=== PATIENT | female | born 1960 | race Caucasian/White ===

== ENCOUNTER 2016-11-15 18:19 | Emergency (ER) | payer OTHER ==
[~2016-11-15] VITALS: Ht 157.5 cm; Wt 68.0 kg
[2016-11-15 19:27] VITALS: BP 128/73
--- NOTE | 2016-11-15 19:55 | NUR ---
PATIENT PRESENTS TO ED WITH C/O ABD PAIN AND BERMAN . PT DENIES N/V/D; SKIN IS PINK/WARM/DRY; AAOX4 WITH EVEN AND STEADY GAIT; LUNGS CLEAR BL; HR EVEN AND REGULAR; PT DENIES ANY FEVER, CP, SOB, OR COUGH AT THIS TIME; PATIENT STATES PAIN OF 9/10 AT THIS TIME; VSS; PATIENT POSITIONED FOR COMFORT; HOB ELEVATED; BEDRAILS UP X2; BED DOWN. ER MD MADE AWARE OF PT STATUS.
[2016-11-15] MEDS ORDERED: KETOROLAC 60 MG/2 ML VIAL IM ONE (20:10)
[2016-11-15] MEDS ORDERED: ONDANSETRON 4 MG ODT PO ONE (20:10)
--- NOTE | 2016-11-15 20:37 | NUR ---
DR DEVLIN MADE AWARE OF PAIN LEVEL. NEW MED ORDERED.
[2016-11-15] MEDS ORDERED: MORPHINE SULFATE 4 MG/ML SYR IM ONE (20:40)
[2016-11-15 21:30] VITALS: BP 119/62
--- NOTE | 2016-11-15 21:30 | NUR ---
Patient discharged with v/s stable. Written and verbal after care instructions given and explained. Patient alert, oriented and verbalized understanding of instructions. Ambulatory with steady gait. All questions addressed prior to discharge. ID band removed. Patient advised to follow up with PMD. Rx of ZOFRAN AND IMMODIUM given. Patient educated on indication of medication including possible reaction and side effects. Opportunity to ask questions provided and answered.
== END 2016-11-15 21:30 | disposition home or self-care (01) ==
LOC: MED 18:19
CPT/HCPCS: 81002; 96372; 99284; J1885; J2270; S0119

== ENCOUNTER 2017-02-06 18:28 | Emergency (ER) | payer OTHER ==
[~2017-02-06] VITALS: Ht 157.5 cm; Wt 68.0 kg
[2017-02-06 18:53] VITALS: BP 125/77
--- NOTE | 2017-02-06 20:58 | NUR ---
PT TAKEN TO BED 6
--- NOTE | 2017-02-06 21:00 | NUR ---
56 Y/O F W/C/O HEADACHE SINCE 399. PT STATES SHE WENT TO URGENT CARE THIS AM, WAS GIVEN INJECTIONS OF TORADOL AND PHENERGAN, WITH NO EFFECTIVENESS. HX HYPERLIPIDEMIA, KLUTI KAAH. ER MD AT BEDSIDE EVALUATING PT.
--- NOTE | 2017-02-06 21:00 | NUR ---
Dr. Conway evaluating patient at bedside.
[2017-02-06] MEDS ORDERED: NACL 0.9% 1,000 ML IV ONE (21:16)
[2017-02-06] MEDS ORDERED: MORPHINE SULFATE 4 MG/ML SYR IVP ONE (21:20)
[2017-02-06] MEDS ORDERED: diphenhydrAMINE 50 MG/ML VIAL IVP ONE (21:20)
[2017-02-06 21:50] LABS: ANION GAP 16.8 (8-16); CARBON DIOXIDE 23.8 mmol/L (21-32); CREATININE 0.7 mg/dL (0.6-1.3); POTASSIUM 3.6 mmol/L (3.5-5.1)
[2017-02-06 22:14] VITALS: BP 122/71
--- NOTE | 2017-02-06 22:17 | NUR ---
Patient discharged with v/s stable. Written and verbal after care instructions given and explained. Patient alert, oriented and verbalized understanding of instructions. Ambulatory with steady gait. All questions addressed prior to discharge. ID band removed. Patient advised to follow up with PMD. Rx of FIORICET [id number] TAB Q4HRS/PRN given. Patient educated on indication of medication including possible reaction and side effects. Opportunity to ask questions provided and answered.
== END 2017-02-06 22:17 | disposition home or self-care (01) ==
LOC: MED 18:28
DX: G43.909 Migraine, unspecified, not intractable, without status migrainosus (principal); Z88.0 Allergy status to penicillin; Z88.8 Allergy status to other drugs, medicaments and biological substances; Z90.710 Acquired absence of both cervix and uterus
CPT/HCPCS: 36415; 70450; 80048; 96361; 96374; 96375; 99285; J1200; J2270; J7030

== ENCOUNTER 2020-09-13 19:21 | Emergency (ER) | payer OTHER ==
[~2020-09-13] VITALS: Ht 157.5 cm; Wt 70.8 kg
[2020-09-13 19:30] VITALS: BP 140/89
--- NOTE | 2020-09-13 19:30 | NUR ---
TO BED AMBULATORY
--- NOTE | 2020-09-13 19:41 | NUR ---
PATIENT BIB SELF FOR C/O 02/27 PAIN "MIGRAINE HEADACHE" X 1 DAY. A & O X4. PATIENT REPORTS SHE WAS AT [facility] TODAY FOR A COLONOSCOPY AND ENDOSCOPY. PATIENT REPORTS N/V X 4 TIMES. DENIES EMESIS IN VOMIT. PATIENT REPORTS THAT SHE HAS NOT EATEN TO DRANK ANTHING SINCE YESTERDAY. PATIENT STATES "MORPHINE IS THE ONLY THING THAT HELPS MY PAIN." PATIENT DENIES TAKING ANY MEDICATIONS AT HOME FOR PAIN. PUPILS BRISK AND PERRLA. SKIN IS WARM, DRY AND INTACT. PATIENT DENIES CP, SOB, FEVER, CHILLS. SEE COMPLETE ASSESSMENT FOR FURTHER DETAILS. MED HX: HIGH CHOLESTEROL ALLERGIES: PENICILLINS, TOPAMAX, VICODIN
[2020-09-13] MEDS ORDERED: ONDANSETRON 4 MG/2 ML VIAL IVP ONE (20:35)
[2020-09-13] MEDS ORDERED: NACL 0.9% 1,000 ML IV ONE (20:35)
[2020-09-13] MEDS ORDERED: KETOROLAC 30 MG/ML VIAL IVP ONE (20:35)
--- NOTE | 2020-09-13 20:49 | NUR ---
IV STARTED 20 G IN LAC, LABS DRAWN AND HAND GIVEN TO COLLETTE SIMON TECH.
[2020-09-13 20:55] LABS: BASOPHILS # (AUTO) 0.1 K/uL (0.00-0.22); BASOPHILS % (AUTO) 1.2 % (0.0-2.0); EOSINOPHILS % (AUTO) 0.4 % (0.0-4.0); LYMPHOCYTES # (AUTO) 0.8 K/uL (2.5-16.5); MEAN CORPUSCULAR HEMOGLOBIN 28 pg (27-31); MEAN CORPUSCULAR HGB CONC 34 g/dL (33-37); MEAN CORPUSCULAR VOLUME 82.6 fL (80-94); MONOCYTES # (AUTO) 0.3 K/uL (0.8-1.0); MONOCYTES % (AUTO) 3.5 % (1.7-9.3); NEUTROPHILS # (AUTO) 6.1 K/uL (1.8-7.7); NEUTROPHILS % (AUTO) 83.9 % (42.2-75.2); PLATELET COUNT (AUTO) 129 K/uL (140-450); RED BLOOD CELL COUNT(AUTO) 5.32 MIL/uL (4.20-5.40); RED CELL DISTRIBUTION WIDTH 13.9 % (11.6-13.7); WHITE BLOOD COUNT (AUTO) 7.3 K/uL (4.8-10.8)
[2020-09-13 21:07] LABS: ALBUMIN 4.1 g/dL (3.4-5.0); ANION GAP 13.2 (8-16); CARBON DIOXIDE 27.2 mmol/L (21-32); CREATININE 0.7 mg/dL (0.6-1.3); POTASSIUM 3.4 mmol/L (3.5-5.1); TOTAL BILIRUBIN 0.7 mg/dL (0.0-1.0)
--- NOTE | 2020-09-13 21:40 | NUR ---
URINE SAMPLE GIVEN TO NAZANIN CHAIR AND COUCH MAKER.
[2020-09-13 21:45] LABS: APPEARANCE,URINE CLEAR (CLEAR); BILIRUBIN,URINE NEGATIVE (NEGATIVE); BLOOD, URINE TRACE-I (NEGATIVE); COLOR,URINE YELLOW (YELLOW); LEUKOCYTE ESTERASE ,URINE NEGATIVE (NEGATIVE); NITRITE, URINE NEGATIVE (NEGATIVE); UGLUCOSE NEGATIVE (NEGATIVE)
[2020-09-13 21:56] LABS: WBC,URINE 0-5 /HPF (0-5)
--- NOTE | 2020-09-13 22:30 | NUR ---
WITH CONSENT FROM PATIENT, PATIENTS (ABRAHAM) WAS UPDATED REGARDING PATIENTS CONDITION. ALL QUESTIONS ANSWERED APPROPRIATELY.
--- NOTE | 2020-09-13 23:16 | NUR ---
PATIENT REPORTS PAIN IS UNRESOLVED. ERMD MADE AWARE, PENDING NEW ORDERS AT THIS TIME. PATIENT MADE AWARE.
[2020-09-13] MEDS ORDERED: MORPHINE SULFATE 4 MG/ML SYR IVP ONE (23:20)
--- NOTE | 2020-09-13 23:25 | NUR ---
PT TAKEN TO CT
--- NOTE | 2020-09-13 23:35 | NUR ---
PT RETURN FROM CT
--- NOTE | 2020-09-14 00:05 | NUR ---
Patient appears to be resting comfortably in bed. Vital Signs within normal limits. Respirations even and unlabored. PATIENT STATES PAIN /. NO N/V AT THIS TIME. PATIENT STATES "I FEEL VERY RELAXED NOW."
[2020-09-14 00:47] LABS: BARBITURATE, URINE NEGATIVE ng/ml (NEG <=200); BENZODIAZEPINE, URINE NEGATIVE ng/mL (NEG <=200); CANNABINOID, URINE NEGATIVE ng/mL (NEG <=50); COCAINE, URINE NEGATIVE ng/mL (NEG <=300); OPIATE, URINE NEGATIVE ng/mL (NEG <=2000); PHENCYCLIDINE SCREEN,URINE NEGATIVE ng/mL (NEG <=25)
--- NOTE | 2020-09-14 01:37 | NUR ---
Patient appears to be resting comfortably in bed. Vital Signs within normal limits. Respirations even and unlabored.
[2020-09-14 02:02] VITALS: BP 126/70
--- NOTE | 2020-09-14 02:02 | NUR ---
Patient discharged with v/s stable. Written and verbal after care instructions given and explained. Patient verbalized understanding. Ambulatory with steady gait. All questions addressed prior to discharge. Advised to follow up with PMD.
== END 2020-09-14 02:02 | disposition home or self-care (01) ==
LOC: MED 19:21
DX: B69.0 Cysticercosis of central nervous system (principal); R11.2 Nausea with vomiting, unspecified; R51.9 Headache, unspecified; E78.00 Pure hypercholesterolemia, unspecified; Z88.0 Allergy status to penicillin; Z88.8 Allergy status to other drugs, medicaments and biological substances
CPT/HCPCS: 36415; 70450; 80053; 80305; 81001; 82150; 83690; 85025; 96361; 96374; 96375; 99285; G0482; J1885; J2270; J2405; J7030

== ENCOUNTER 2020-10-05 09:09 | Emergency (ER) | payer OTHER ==
[~2020-10-05] VITALS: Ht 157.5 cm; Wt 68.0 kg
[2020-10-05 09:15] VITALS: BP 143/61
--- NOTE | 2020-10-05 09:19 | NUR ---
Patient ambulated with steady gait to bed 6.
[2020-10-05] MEDS ORDERED: PROCHLORPERAZINE 10 MG/2 ML VIAL IVP ONE (09:30)
[2020-10-05] MEDS ORDERED: NACL 0.9% 1,000 ML IV ONE (09:30)
[2020-10-05] MEDS ORDERED: KETOROLAC 30 MG/ML VIAL IVP ONE (09:30)
[2020-10-05] MEDS ORDERED: diphenhydrAMINE 50 MG/ML VIAL IVP ONE (09:30)
[2020-10-05 09:52] LABS: BASOPHILS % (AUTO) 0.5 % (0.0-2.0); EOSINOPHILS # (AUTO) 0.2 K/uL (0-0.4); EOSINOPHILS % (AUTO) 2.4 % (0.0-4.0); HEMATOCRIT 45.6 % (36-48); HEMOGLOBIN 15.6 g/dL (12.0-16.0); LYMPHOCYTES # (AUTO) 2.5 K/uL (2.5-16.5); LYMPHOCYTES % (AUTO) 30.7 % (20.5-51.1); MEAN CORPUSCULAR HEMOGLOBIN 28 pg (27-31); MEAN CORPUSCULAR HGB CONC 34 g/dL (33-37); MEAN CORPUSCULAR VOLUME 81.9 fL (80-94); MONOCYTES # (AUTO) 0.5 K/uL (0.8-1.0); MONOCYTES % (AUTO) 5.8 % (1.7-9.3); NEUTROPHILS # (AUTO) 4.9 K/uL (1.8-7.7); NEUTROPHILS % (AUTO) 60.6 % (42.2-75.2); PLATELET COUNT (AUTO) 153 K/uL (140-450); RED BLOOD CELL COUNT(AUTO) 5.56 MIL/uL (4.20-5.40); RED CELL DISTRIBUTION WIDTH 14.2 % (11.6-13.7); WHITE BLOOD COUNT (AUTO) 8.1 K/uL (4.8-10.8)
[2020-10-05 09:55] LABS: ALBUMIN 4.2 g/dL (3.4-5.0); ANION GAP 15.9 (8-16); CARBON DIOXIDE 25.8 mmol/L (21-32); CREATININE 0.7 mg/dL (0.6-1.3); POTASSIUM 3.7 mmol/L (3.5-5.1); TOTAL BILIRUBIN 0.6 mg/dL (0.0-1.0)
--- NOTE | 2020-10-05 09:59 | NUR ---
60 YEAR OLD FEMALE COMPLAINS OF ABDOMINAL PAIN X YESTERDAY. PT STATES SHE ALSO HAS NAUSEA, VOMITTING, DIARRHEA X YESTERDAY. PT DENIES BLOOD IN VOMIT OR DEFECATIONL. PT ALSO COMPLAINS OF MIGRAINE ASSOCIATED WITH VOMITTING. PT AOX4, BREATHING EVEN AND UNLABORED, SKIN WARM AND DRY. BED IN LOWEST POSITION, LOCKED, BED RAIL UPX1. PMH - C SECTION, HYSTERECTOMY ALLERGIES - PCN
--- NOTE | 2020-10-05 10:13 | NUR ---
DR MARS AT BEDSIDE RE-EVALUATING PATIENT
[2020-10-05] MEDS ORDERED: MORPHINE SULFATE 4 MG/ML SYR IVP ONE (10:20)
[2020-10-05] MEDS ORDERED: ONDA4TAB PO (11:31)
--- NOTE | 2020-10-05 11:55 | NUR ---
Patient discharged with v/s stable. Written and verbal after care instructions about diarrhea and migraine given and explained. Patient alert, oriented and verbalized understanding of instructions. Ambulatory with steady gait. All questions addressed prior to discharge. ID band removed. Patient advised to follow up with PMD. Rx of ZOFRAN given. Patient educated on indication of medication including possible reaction and side effects. Opportunity to ask questions provided and answered.
[2020-10-05 11:56] VITALS: BP 121/61
== END 2020-10-05 11:55 | disposition home or self-care (01) ==
LOC: MED 09:09
DX: R10.9 Unspecified abdominal pain (principal); G43.909 Migraine, unspecified, not intractable, without status migrainosus; R11.2 Nausea with vomiting, unspecified; Z88.0 Allergy status to penicillin; Z88.8 Allergy status to other drugs, medicaments and biological substances; Z79.899 Other long term (current) drug therapy
CPT/HCPCS: 36415; 74021; 80053; 81002; 83690; 84484; 85025; 93005; 96361; 96374; 96375; 99285; J0780; J1200; J1885; J2270; J7030

== ENCOUNTER 2023-03-25 09:33 | Emergency (ER) | payer OTHER ==
[~2023-03-25] VITALS: Ht 157.5 cm; Wt 63.5 kg
[~2023-03-25 09:33] MED LIST: ONDA4TAB PO
[2023-03-25 09:40] VITALS: BP 107/49; PULSE 84; RESP 18; TEMP 97.6; O2SAT 97
[2023-03-25 10:08] VITALS: O2SAT 97
[2023-03-25 10:17] LABS: APPEARANCE,URINE CLEAR (CLEAR); BILIRUBIN,URINE NEGATIVE (NEGATIVE); BLOOD, URINE 1+ (NEGATIVE); COLOR,URINE YELLOW (YELLOW); LEUKOCYTE ESTERASE ,URINE NEGATIVE (NEGATIVE); NITRITE, URINE NEGATIVE (NEGATIVE); PROTEIN,URINE NEGATIVE (NEGATIVE); UGLUCOSE NEGATIVE (NEGATIVE)
[2023-03-25] MEDS ORDERED: NACL 0.9% 1,000 ML IV ONE (10:30)
[2023-03-25] MEDS ORDERED: ONDANSETRON 4 MG/2 ML VIAL IVP ONE (10:30)
[2023-03-25] MEDS ORDERED: MORPHINE SULFATE 4 MG/ML SYR IVP ONE (10:30)
[2023-03-25 10:59] LABS: ALBUMIN 3.9 g/dL (3.4-5.0); ANION GAP 13.5 (8-16); CALCIUM 8.8 mg/dL (8.5-10.1); CARBON DIOXIDE 26.8 mmol/L (21-32); CREATININE 0.8 mg/dL (0.6-1.3); POTASSIUM 3.3 mmol/L (3.5-5.1); TOTAL BILIRUBIN 0.6 mg/dL (0.0-1.0); TOTAL PROTEIN, SERUM 7.8 g/dL (6.4-8.2)
[2023-03-25 11:07] LABS: BASOPHILS % (AUTO) 0.4 % (0.0-2.0); EOSINOPHILS # (AUTO) 0.1 K/uL (0-0.4); EOSINOPHILS % (AUTO) 1.9 % (0.0-4.0); HEMATOCRIT 42.8 % (36-48); HEMOGLOBIN 14.6 g/dL (12.0-16.0); LYMPHOCYTES # (AUTO) 1.2 K/uL (2.5-16.5); LYMPHOCYTES % (AUTO) 15.8 % (20.5-51.1); MEAN CORPUSCULAR HEMOGLOBIN 28 pg (27-31); MEAN CORPUSCULAR HGB CONC 34 g/dL (33-37); MEAN CORPUSCULAR VOLUME 81.5 fL (80-94); MONOCYTES # (AUTO) 0.8 K/uL (0.8-1.0); MONOCYTES % (AUTO) 9.8 % (1.7-9.3); NEUTROPHILS # (AUTO) 5.6 K/uL (1.8-7.7); NEUTROPHILS % (AUTO) 72.1 % (42.2-75.2); PLATELET COUNT (AUTO) 120 K/uL (140-450); RED BLOOD CELL COUNT(AUTO) 5.25 MIL/uL (4.20-5.40); RED CELL DISTRIBUTION WIDTH 14.4 % (11.6-13.7); WHITE BLOOD COUNT (AUTO) 7.7 K/uL (4.8-10.8)
[2023-03-25] MEDS ORDERED: ONDA-188 SL (12:39)
[2023-03-25 13:04] VITALS: BP 107/79; PULSE 97; RESP 18; TEMP 97.6; O2SAT 97
== END 2023-03-25 12:40 | disposition home or self-care (01) ==
LOC: MED 09:33
DX: A08.4 Viral intestinal infection, unspecified (principal); Z79.899 Other long term (current) drug therapy
CPT/HCPCS: 36415; 74176; 80053; 81003; 83605; 83690; 85025; 87040; 96361; 96374; 96375; 99285; J2270; J2405; J7030